=== PATIENT | female | born 1965 | race Caucasian/White ===

== ENCOUNTER 2023-05-28 17:23 | Emergency (ER) | payer OTHER, SELFPAY ==
[2023-05-28 17:49] VITALS: BP 196/112; PULSE 65; RESP 20; TEMP 36.6; O2SAT 99
[2023-05-28] MEDS: TETANUS,DIPHTHERIA,AC PERTUSSIS ADULT (0.5 ML) BOOSTRIX IM (18:24)
[2023-05-28] MEDS: HYDROmorphone HCL INJ (*CRX) 1 MG/ML SYR IM (18:24)
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
[2023-05-28] MEDS: SILVER SULFADIAZINE 1% CR 50 GM JAR (*BKC) 1 APPLIC TOPICAL (18:53)
== END 2023-05-28 19:43 | disposition home or self-care (01) ==
PROVIDERS: Emergency Provider Physician Assistant
DX: T22.211A Burn of second degree of right forearm, initial encounter (principal); T23.251A Burn of second degree of right palm, initial encounter; T23.241A Burn of second degree of multiple right fingers (nail), including thumb, initial encounter; T31.0 Burns involving less than 10% of body surface; X12.XXXA Contact with other hot fluids, initial encounter; Z23 Encounter for immunization
CPT/HCPCS: 90471; 90715; 96372; 99283; A9270; J1170